=== PATIENT | female | born 1995 | race Caucasian/White ===

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

== ENCOUNTER 2017-01-26 12:15 | Emergency (ER) | payer OTHER ==
[2017-01-26] MEDS ORDERED: NS 1,000 ML IV ONE (14:24)
[2017-01-26] MEDS ORDERED: DEXAMETHASONE 10 MG/ML VIAL IVP ONE (14:24)
[2017-01-26] MEDS ORDERED: KETOROLAC 30 MG/1 ML SDV IVP ONE (14:24)
--- NOTE | 2017-01-26 15:17 | EDPHY ---
H & P Time Seen by Provider: 01/26/17 14:04 HPI/ROS: CHIEF COMPLAINT: Sore throat HISTORY OF PRESENT ILLNESS: 21-year-old female presents to the emergency department by private vehicle complaining of severe sore throat and swollen glands. Patient states symptoms started just 2 days ago. She denies fatigue. She states that she is having difficulty swallowing liquids and eating food because of the pain. No known ill contacts. No recent travel. No fevers or chills. No URI symptoms. No chest pain or difficulty breathing. No abdominal pain. No rash. REVIEW OF SYSTEMS: Constitutional: No fever, no chills. Eyes: No double or blurry vision. ENT: sore throat. Respiratory: No cough, no shortness of breath. Cardiac: No chest pain. Gastrointestinal: No abdominal pain, vomiting or diarrhea. Genitourinary: No dysuria. Musculoskeletal: No neck or back pain. Skin: No rashes. Neurological: No headache. Past Medical/Surgical History: Negative Social History: Sophomore at [employer] Smoking Status: Never smoked Physical Exam: General Appearance: Alert, no distress. Afebrile. Eyes: Pupils equal and round. Extraocular motions are all intact. ENT: Mouth: Mucous membranes moist. Slightly muffled voice. No trismus. Large 3+ tonsils with exudate. No uvular swelling or shift. Anterior and posterior cervical lymphadenopathy noted. Neck is supple. Respiratory: No wheezing, rhonchi, or rales, lungs are clear to auscultation. Cardiovascular: Regular rate and rhythm. Gastrointestinal: Abdomen is soft and nontender, no masses, no rebound or guarding, bowel sounds normal. Neurological: Alert and oriented x 3, cranial nerves II through XII grossly intact Skin: Warm and dry, no rashes. Musculoskeletal: Nontender to palpate along the cervical, thoracic or lumbar spine. Neck is supple. Extremities: Full range of motion and no peripheral edema. Psychiatric: Patient is oriented X 3, there is no agitation. Constitutional: Initial Vital Signs Temperature (C) 37.1 C 01/26/17 12:36 Heart Rate 87 01/26/17 12:36 Respiratory Rate 18 01/26/17 12:36 Blood Pressure 123/94 H 01/26/17 12:36 O2 Sat (%) 96 01/26/17 12:36 O2 Delivery Mode Room Air Allergies/Adverse Reactions: No Known Allergies Allergy (Unverified 01/26/17 12:38) Home Medications: Medication Instructions Recorded Dexamethasone [Decadron] 8 mg PO DAILY #2 tab 01/26/17 Penicillin V Potassium 500 mg PO TID #30 tablet 01/26/17 Medical Decision Making ED Course/Re-evaluation: 21-year-old female presents with severe sore throat. The patient is having difficulties swallowing liquids and is unable to eat because of the pain. IV was established and she was given 30 mg of IV Toradol, 10 mg of IV Decadron, and IV normal saline. She was monitored throughout her stay in the emergency department. Rapid strep test was positive. Monospot was positive. Patient will be treated with penicillin for 10 days. She was told that she has mono and should avoid any contact sports until she has been cleared by her primary care provider, for 1 week. She was instructed to return to the emergency department she had difficulty swallowing, difficulty breathing, or if she felt worse in any way. Differential Diagnosis: Including but not limited to strep pharyngitis, mononucleosis, viral pharyngitis , peritonsillar abscess - Data Points Laboratory Results: 01/26/17 01/26/17 14:40 14:08 Monoscreen POSITIVE H (NEGATIVE) Group A Strep Screen POSITIVE H (NEGATIVE) Medications Given: Discontinued Medications Dexamethasone (Decadron Injection) 10 mg IVP EDNOW ONE Stop: 01/26/17 14:25 Last Admin: 01/26/17 14:36 Dose: 10 mg Sodium Chloride (Ns) 1,000 mls @ 0 mls/hr IV ONCE ONE PRN Reason: Wide Open Stop: 01/26/17 14:25 Last Admin: 01/26/17 14:36 Dose: 1,000 mls Ketorolac Tromethamine (Toradol) 30 mg IVP EDNOW ONE Stop: 01/26/17 14:25 Last Admin: 01/26/17 14:36 Dose: 30 mg Departure - Departure Disposition: Home, Routine, Self-Care Clinical Impression: Strep pharyngitis, Mononucleosis Condition: Good Instructions: Mononucleosis (ED), Strep Throat (ED) Additional Instructions: Penicillin as directed for 10 days. Your given a dose of Decadron in the emergency department. You are also given additional dose to take tomorrow. Ibuprofen 600 mg every 8 hr as needed for pain. Discard toothbrush after being on antibiotics for 48 hr and again when you have completed the antibiotics in 10 days. No contact sports, skiing, or any activity that might potentially put her at risk for blunt abdominal trauma. Return to the emergency department immediately if he developed abdominal pain, swelling, or if you feel worse in any way. Referrals: Melinda Baez MD [Primary Care Provider] - 2-3 days without fail Prescriptions: Dexamethasone [Decadron] 8 mg PO DAILY #2 tab Penicillin V Potassium 500 mg PO TID #30 tablet
[2017-01-26 15:30] VITALS: BP 100/68; PULSE 81; RESP 15; TEMP 98.2; O2SAT 98
== END 2017-01-26 15:30 | disposition home or self-care (01) ==
DX: J02.0 Streptococcal pharyngitis (principal); B27.90 Infectious mononucleosis, unspecified without complication; E86.9 Volume depletion, unspecified
CPT/HCPCS: 96374; J1100; J1885